=== PATIENT | female | born 1970 | race Two or more races ===

== ENCOUNTER 2018-09-14 07:33 | Emergency (ER) | payer SELFPAY ==
[~2018-09-14] VITALS: Ht 162.6 cm; Wt 72.1 kg
[2018-09-14 07:48] VITALS: BP 145/87
[2018-09-14] MEDS ORDERED: ACETAMINOPHEN 325 MG TAB PO ONE (08:00)
== END 2018-09-14 08:44 | disposition home or self-care (01) ==
LOC: ER 07:41
DX: S16.1XXA Strain of muscle, fascia and tendon at neck level, initial encounter (principal); S39.012A Strain of muscle, fascia and tendon of lower back, initial encounter; S80.12XA Contusion of left lower leg, initial encounter; V43.52XA Car driver injured in collision with other type car in traffic accident, initial encounter; Y93.89 Activity, other specified; Y99.8 Other external cause status; Y92.410 Unspecified street and highway as the place of occurrence of the external cause
CPT/HCPCS: 72040; 72100

== ENCOUNTER 2018-09-28 19:21 | Emergency (ER) | payer SELFPAY ==
[~2018-09-28] VITALS: Ht 170.2 cm; Wt 78.5 kg
[2018-09-28 19:59] LABS: Basophils # (auto) 0 uL; Basophils % (auto) 0.7 % (0.0-2.0); Eosinophils # (auto) 0.2 uL; Eosinophils % (auto) 3.4 % (0.0-7.0); Hematocrit 38.2 % (36.0-46.0); Hemoglobin 12.6 g/dL (12.2-16.2); Lymphocytes # (auto) 2.4 uL; Lymphocytes % (auto) 34.1 % (10.0-50.0); Mean Corpuscular Hemoglobin 30.7 pg (28.0-32.0); Mean Corpuscular Hgb Conc. 33.1 g/dL (32.0-36.0); Mean Corpuscular Volume 92.8 fL (80.0-100.0); Monocytes # (auto) 0.5 uL; Monocytes % (auto) 6.7 % (0.0-12.0); Neutrophils % (auto) 55.1 % (37.0-80.0); Platelet Count (auto) 295 10^3/uL (140-450); Red Blood Cells 4.12 10^6/uL (4.0-5.20); Red Cell Distribution Width 13.2 % (11.8-14.3); White Blood Cell 7.2 10^3/uL (4.4-10.8)
[2018-09-28 20:08] LABS: INR 0.93 (0.9-1.15)
[2018-09-28 20:09] LABS: Albumin 3.4 g/dL (3.4-5.0); Anion Gap 7 (5-15); BUN/Creatinine Ratio 18.1; Blood Urea Nitrogen 15 mg/dL (7-18); Calcium 8.5 mg/dL (8.5-10.1); Carbon Dioxide 27 mmol/L (21-32); Chloride 109 mmol/L (98-107); GFR African American 94 mL/min; GFR Non-African American 78 mL/min; Glucose 87 mg/dL (74-106); Sodium 143 mmol/L (136-145)
[2018-09-28 20:14] LABS: Alanine Aminotransferase 17 U/L (13-56); Alkaline Phosphatase 107 U/L (45-117); Aspartate Aminotransferase 12 U/L (15-37); Bilirubin, Total 0.1 mg/dL (0.2-1.0); Total Protein 7.3 g/dL (6.4-8.2)
[2018-09-28] MEDS ORDERED: traMADol HCL 50 MG TAB PO ONE (21:45)
[2018-09-28] MEDS ORDERED: TETANUS-DIPTH-ACEL PERTUSSIS 0.5ML SYRG IM ONE (21:45)
[2018-09-29 01:17] VITALS: BP 112/62
[2018-09-29] MEDS ORDERED: HYDROcodone-ACET 5/325MG TAB PO ONE ×2 (02:00→02:30)
== END 2018-09-29 03:03 | disposition home or self-care (01) ==
LOC: ER 19:21
DX: S93.402D Sprain of unspecified ligament of left ankle, subsequent encounter (principal); S80.12XD Contusion of left lower leg, subsequent encounter; S20.212D Contusion of left front wall of thorax, subsequent encounter; R07.9 Chest pain, unspecified; G89.11 Acute pain due to trauma; X58.XXXD Exposure to other specified factors, subsequent encounter
CPT/HCPCS: 36415; 71250; 73610; 73630; 73700; 80053; 84484; 85025; 85610; 90471; 90715; 93971; 96372